=== PATIENT | female | born 1995 | race Caucasian/White ===

== ENCOUNTER 2024-11-06 12:12 | Emergency (ER) | payer MEDICAID, OTHER ==
[~2024-11-06] VITALS: Ht 165.1 cm; Wt 68.2 kg
[~2024-11-06 12:12] MED LIST: FERR325T27 PO
[2024-11-06 12:22] VITALS: TEMP 98.2
[2024-11-06] MEDS: PERTUSS(ACELL),DIPH,TET/PF 0.5 ML SYRINGE [ADULT] IM. ONE (15:26)
[2024-11-06] MEDS: AMOX TR/POT CLAV 875 MG/125 MG TABLET PO ONE (15:26)
[2024-11-06] MEDS: RABIES IMMUNE GLOBULIN/PF 150 UNITS/ML 10 ML VIAL IM. ONE (16:15)
[2024-11-06] MEDS: RABIES VACCINE, HUMAN DIPLOID/PF 2.5 UNITS/ML VIAL IM. ONE (16:38)
[2024-11-06 16:57] VITALS: BP 123/75; PULSE 65; RESP 16; O2SAT 99
[2024-11-06] MEDS ORDERED: AMOX-457 PO (17:10)
== END 2024-11-06 17:29 | disposition home or self-care (01) ==
LOC: EMS 12:12
DX: S61.452A Open bite of left hand, initial encounter (principal); S61.451A Open bite of right hand, initial encounter; J45.909 Unspecified asthma, uncomplicated; W55.01XA Bitten by cat, initial encounter; Y93.89 Activity, other specified; Y92.89 Other specified places as the place of occurrence of the external cause; Y99.8 Other external cause status
CPT/HCPCS: 90375; 90471; 90472; 90675; 90715; 96372; 99284

== ENCOUNTER 2024-11-09 14:13 | Emergency (ER) | payer OTHER ==
[~2024-11-09] VITALS: Ht 167.6 cm; Wt 68.2 kg
[~2024-11-09 14:13] MED LIST changes: +AMOX-457 PO; -FERR325T27 PO
[2024-11-09 14:49] VITALS: TEMP 98.2
[2024-11-09] MEDS: RABIES VACCINE, HUMAN DIPLOID/PF 2.5 UNITS/ML VIAL IM. ONE (16:25)
[2024-11-09 16:39] VITALS: BP 104/68; PULSE 80; RESP 16; O2SAT 98
== END 2024-11-09 17:00 | disposition home or self-care (01) ==
LOC: EMS 14:20
DX: Z20.3 Contact with and (suspected) exposure to rabies (principal); Z23 Encounter for immunization; J45.909 Unspecified asthma, uncomplicated
CPT/HCPCS: 90471; 90675; 99281

== ENCOUNTER 2024-11-13 11:10 | Emergency (ER) | payer OTHER ==
[~2024-11-13] VITALS: Ht 162.6 cm; Wt 74.5 kg
[2024-11-13 11:11] VITALS: BP 98/62; PULSE 75; RESP 18; TEMP 97.9; O2SAT 97
[2024-11-13] MEDS: RABIES VACCINE, HUMAN DIPLOID/PF 2.5 UNITS/ML VIAL IM. ONE (12:27)
== END 2024-11-13 12:31 | disposition home or self-care (01) ==
LOC: EMS 11:10
DX: Z23 Encounter for immunization (principal); J45.909 Unspecified asthma, uncomplicated
CPT/HCPCS: 90471; 90675; 99281

== ENCOUNTER 2024-11-24 12:45 | Emergency (ER) | payer OTHER ==
[~2024-11-24] VITALS: Ht 165.1 cm; Wt 74.1 kg
[2024-11-24 12:48] VITALS: BP 99/64; PULSE 76; RESP 16; TEMP 98.4; O2SAT 98
[2024-11-24] MEDS ORDERED: FLUO10TA35 PO (12:50)
[2024-11-24] MEDS: RABIES VACCINE, HUMAN DIPLOID/PF 2.5 UNITS/ML VIAL IM. ONE (13:54)
== END 2024-11-24 14:00 | disposition home or self-care (01) ==
LOC: EMS 12:46
DX: Z23 Encounter for immunization (principal); Z20.3 Contact with and (suspected) exposure to rabies; J45.909 Unspecified asthma, uncomplicated; Z79.899 Other long term (current) drug therapy
CPT/HCPCS: 90471; 90675; 99281